=== PATIENT | female | born 1990 | race Caucasian/White ===

== ENCOUNTER 2019-03-20 09:16 | Emergency (ER) | payer MEDICAID ==
[2019-03-20] MEDS ORDERED: Rocephin 1000 MG INJ IM ONE (09:35)
[2019-03-20] MEDS ORDERED: Rocephin 1000 MG INJ ONE (09:40)
[2019-03-20] MEDS ORDERED: XYLOCAINE 1% HCL 20 ML MDV ONE (09:41)
--- NOTE | 2019-03-20 09:45 | ERPHSYRPT ---
- History of Present Illness Time Seen by Provider: 03/20/19 09:36 Source: patient Exam Limitations: no limitations Patient Subjective Stated Complaint: Mfssjg-ua-infp pet squirrel bit her left hand at the base of the thumb, hand is swollen and bruised, rates pain 7/10 Triage Nursing Assessment: Pt came to ER with c/o of left shoulder and hand pain due to a squirrel bite, hypertensive, pulses normal, hand bruising at the base of the thumb, rates pain 7/10 Physician History: [id number]-ia-qyhl pet squirrel bit her left hand at the base of the thumb, hand is swollen and bruised, bite happened on (2 days ago) Timing/Duration: day(s) (2 days ago) Severity: mild Modifying Factors: Improves With: cold therapy Associated Symptoms: denies symptoms Allergies/Adverse Reactions: No Known Drug Allergies Allergy (Verified 03/20/19 09:35) Home Medications: Fluticasone Propionate [Flonase Allergy Relief] 1 spray NS UD 03/20/19 [History] Hx Tetanus, Diphtheria Vaccination/Date Given: Yes (4 years ago) Hx Influenza Vaccination/Date Given: No Hx Pneumococcal Vaccination/Date Given: No Immunizations Up to Date: Yes - Review of Systems Constitutional: No Fever, No Chills Eyes: No Symptoms Ears, Nose, & Throat: No Symptoms Respiratory: No Cough, No Dyspnea Cardiac: No Chest Pain, No Edema, No Syncope Abdominal/Gastrointestinal: No Abdominal Pain, No Nausea, No Vomiting, No Diarrhea Genitourinary Symptoms: No Dysuria Musculoskeletal: Joint Swelling (left hand and wrist), No Back Pain, No Neck Pain Skin: No Rash Neurological: No Dizziness, No Focal Weakness, No Sensory Changes Psychological: No Symptoms Endocrine: No Symptoms All Other Systems: Reviewed and Negative - Past Medical History Pertinent Past Medical History: No - Past Surgical History Past Surgical History: No - Social History Smoking Status: Former smoker Exposure to second hand smoke: No Drug Use: none Patient Lives Alone: No - Female History Hx Last Menstrual Period: 03/10/2019 Hx Now: No - Nursing Vital Signs Nursing Vital Signs: Initial Vital Signs Temperature 98.3 F 03/20/19 09:24 Pulse Rate 97 H 03/20/19 09:24 Blood Pressure 163/110 03/20/19 09:24 O2 Sat by Pulse Oximetry 98 03/20/19 09:24 Pain Scale Pain Intensity 7 - Physical Exam General Appearance: no apparent distress, alert Eye Exam: PERRL/EOMI, eyes nml inspection Ears, Nose, Throat Exam: normal ENT inspection, TMs normal, pharynx normal, moist mucous membranes Neck Exam: normal inspection, non-tender, supple, full range of motion Respiratory Exam: normal breath sounds, lungs clear, No respiratory distress Cardiovascular Exam: regular rate/rhythm, normal heart sounds, normal peripheral pulses Gastrointestinal/Abdomen Exam: soft, normal bowel sounds, No tenderness, No mass Back Exam: normal inspection, normal range of motion, No CVA tenderness, No vertebral tenderness Extremity Exam: normal inspection, normal range of motion, pelvis stable Neurologic Exam: alert, oriented x 3, cooperative, normal mood/affect, nml cerebellar function, nml station & gait, sensation nml, No motor deficits Skin Exam: normal color, warm, dry, ecchymosis (left thumb area), No rash Lymphatic Exam: No adenopathy SpO2 Interpretation: normal SpO2: 98 O2 Delivery: Room Air - Course Nursing assessment & vital signs reviewed: Yes Ordered Tests: Medication Summary Generic Name Dose Route Start Last Admin Trade Name Freq PRN Reason Stop Dose Admin Ceftriaxone Sodium 1,000 mg 03/20/19 09:35 Rocephin 1000 Mg Inj IM 03/20/19 09:36 STAT ONE - Progress Progress: unchanged Counseled pt/family regarding: diagnosis, need for follow-up - Departure Departure Disposition: Home Clinical Impression: Bitten by squirrel, initial encounter Condition: Stable Critical Care Time: No Instructions: Animal Bites (DC), Animal and Human Bites Additional Instructions: Discharge/Care Plan PUSHPANINIFarazEDITH SHILPA was seen on 03/20/19 in the Emergency Room. The patient was counseled regarding Diagnosis,Lab results, Imaging studies, need for follow up and when to return to the Emergency Room. Prescriptions given: Discharge Note I have spoken with the patient and/or caregivers. I have explained the patient' s condition, diagnosis and treatment plan based on the information available to me at this time. I have answered the patient's and/or caregiver's questions and addressed any concerns. The patient and/or caregivers have as good understanding of the patient's diagnosis, condition and treatment plan as can be expected at this point. The vital signs have been stable. The patient's condition is stable and appropriate for discharge from the emergency department. The patient will pursue further outpatient evaluation with the primary care physician or other designated or consulting physician as outlined in the discharge instructions. The patient and/or caregivers are agreeable to this plan of care and follow-up instructions have been explained in detail. The patient and/or caregivers have received these instruction. The patient/and or caregivers are aware that any significant change in condition or worsening of symptoms should prompt an immediate return to this or the closest emergency department or call 911. TENZINFarazEDITH MASSEY was seen on 03/20/19 n the Emergency Room. At that time you were treated for an emergent condition, during your visit Laboratory, Radiology and/or other procedures may have been ordered. It is very important that you follow-up with your Primary Care Physician within the next 24-48 hours to review your Emergency Room visit and the final results of testing that was ordered. Some test results such as Urine Cultures, Blood Cultures, and other cultures if ordered will not be finalized for 24-48 hours. If you do not have a Primary Care Provider please call the medical records department at [phone] to obtain a copy of your results or you may sign into our patient portal to obtain these results by visiting us @ [email or web address] and completing the following steps: 1. Click on the Patient Portal link 2. Click the Patient Self Enrollment Link to complete the enrollment form and entering your 3. Once the enrollment form is completed you will receive an email with a temporary ID and password at the email address you provided. 4. Next choose a user name and password. Your user name must be at least 4 characters long and your password must be at least 4 characters long. 5. Choose a security question from the list and provide your answer to the question. If you already have signed into the Health Portal you may access your Health Care Information 19/05 by the following steps: 1. Login to our website @ [email or web address] 2. Enter your original user name and password. FAQS The [facility] Health Portal is an online tool that contains your Lab Results, Radiology Reports, Visit History, Discharge Instructions and Health Summary Lab and Radiology Results will not be available for 72 hours on the portal. The Portal is a secure site, passwords are encryted and URLs are re-written so they cannot be copied and pasted. You and authorized family members are the only ones who can access your Portal. Also there is a timeout feature that protects your information if you leave the Portal page open. If you have technical difficulty please use the Contact Us link on the page this will allow you to submit any questions you have regarding the Portal or you may contact the Medical Record Department at [phone]. Prescriptions: Amoxicillin 500 mg Cap [Amoxil 500 mg] 500 mg PO TID #30 capsule
[2019-03-20 10:39] VITALS: BP 140/102; PULSE 87; O2SAT 97
== END 2019-03-20 10:40 | disposition home or self-care (01) ==
LOC: ED 09:16
DX: M79.642 Pain in left hand (principal); M25.512 Pain in left shoulder; S60.012A Contusion of left thumb without damage to nail, initial encounter; M79.89 Other specified soft tissue disorders; W53.21XA Bitten by squirrel, initial encounter; Y92.89 Other specified places as the place of occurrence of the external cause
CPT/HCPCS: 96372; 99284; J0696